=== PATIENT | female | born 1960 | race Asian ===

== ENCOUNTER 2016-11-23 22:22 | Inpatient (IN) | payer OTHER ==
[~2016-11-23] VITALS: Ht 160 cm; Wt 64.5 kg
[2016-11-23] MEDS ORDERED: PANTOPRAZOLE 80 MG in SODIUM CHLORIDE 0.9% 50 ML IVPB ONE (22:34)
[2016-11-23] MEDS ORDERED: AMIT10TA PO (23:13)
[2016-11-23 23:20] LABS: ASPARTATE AMINO TRANSFERASE 23 U/L (15-37); BLOOD UREA NITROGEN 11 mg/dL (7-18)
[2016-11-24] MEDS ORDERED: MORPHINE SULFATE 4 MG/ML, 1ML IVPush PRN (00:30)
[2016-11-24] MEDS ORDERED: ONDANSETRON 2MG/ML, 2ML IVPush PRN (00:30)
[2016-11-24] MEDS ORDERED: ACETAMINOPHEN 325 MG TABLET PO PRN (01:00)
[2016-11-24] MEDS ORDERED: AMITRIPTYLINE 10 MG TABLET PO SCH (01:00)
[2016-11-24] MEDS ORDERED: TEMAZEPAM 15 MG CAPSULE PO PRN (01:00)
[2016-11-24] MEDS ORDERED: SODIUM CHLORIDE 0.45% 1,000 ML IV SCH (01:00)
[2016-11-24 01:21] LABS: HEMOGLOBIN 9.4 g/dL (11.7-16.4)
[2016-11-24 02:00] VITALS: BP 127/73
[2016-11-24 02:31] VITALS: BP 127/73
[2016-11-24 06:32] LABS: HEMOGLOBIN 8.8 g/dL (11.7-16.4)
[2016-11-24] MEDS ORDERED: PANTOPRAZOLE 40 MG IV IVP SCH (07:30)
[2016-11-24 07:50] VITALS: BP 115/71
[2016-11-24 12:33] LABS: HEMOGLOBIN 8.9 g/dL (11.7-16.4)
[2016-11-24 13:05] VITALS: BP 105/67
[2016-11-24] MEDS ORDERED: PANT20TA2 PO (16:39)
== END 2016-11-24 16:50 | disposition home or self-care (01) | DRG 379 ==
LOC: ED 23:16 → EDIP 11-24 00:10 → 4WST 11-24 01:45 → DCLOUNGE 11-24 16:35
PROVIDERS: ADMIT Internal Medicine; ATTEND Internal Medicine
DX: K92.2 Gastrointestinal hemorrhage, unspecified (principal); M79.7 Fibromyalgia; D50.0 Iron deficiency anemia secondary to blood loss (chronic); F41.8 Other specified anxiety disorders; Z88.1 Allergy status to other antibiotic agents
CPT/HCPCS: 36415; 80053; 83690; 85014; 85018; 85025; 86850; 86900; 96365; C9113